=== PATIENT | female | born 1955 | race Two or more races ===

== ENCOUNTER 2020-01-02 19:08 | Inpatient (IN) | payer MEDICAID ==
[~2020-01-02] VITALS: Ht 160 cm; Wt 63.0 kg
--- NOTE | 2020-01-02 19:10 | NUR ---
ED Nurse Note: Patient brought into ED from home by ambulance RA [id number] due to dizziness, headache, nausea and vomiting 30 mintues prior to arrival to ED. BS on the scene was 137. patient is alert awake x4 ambulatory breathing unlabored and even, speaking in full sentences. patient placed on a hospital gown, on a equipment monitor phototypesetting.
--- NOTE | 2020-01-02 19:17 | Emergency Room Report ---
History of Present Illness General Chief Complaint: Dizziness Source: Patient, EMS Present Illness HPI Patient is a 64-year-old female who presents after increased dizziness and headache. Prior history of hypertension and previous similar symptoms several years ago. Onset of symptoms approximately 3 hours prior to arrival. She took Benadryl without any improvement. Takes medication for hypertension. Reports having increased spinning sensation. Denies any vomiting or diarrhea. Allergies: Coded Allergies: MORPHINE (Verified Allergy, Unknown, 01/02/20) COVID-19 Screening Contact w/high risk pt: No Recent Travel to affected area: No Experienced COVID-19 symptoms?: No COVID-19 Testing performed SOLE ROUNDER: No Patient History Past Medical History: see triage record Reviewed Nursing Documentation: PMH: Agreed; PSxH: Agreed Nursing Documentation-PMH Hx Hypertension: Yes - high cholesterol Hx Diabetes: Yes Review of Systems All Other Systems: negative except mentioned in HPI Physical Exam Vital Signs Date Time Temp Pulse Resp B/P (MAP) Pulse Ox O2 Delivery O2 Flow Rate FiO2 01/02/20 19:04 97.3 67 17 163/80 (107) 97 Room Air Sp02 EP Interpretation: reviewed, normal General Appearance: normal inspection, well appearing, no apparent distress, alert, GCS 15, non-toxic Head: atraumatic ENT: normal ENT inspection, hearing grossly normal, normal voice Neck: normal inspection, full range of motion, supple, no bony tend Respiratory: normal inspection, lungs clear, normal breath sounds, no respiratory distress, no retraction, no wheezing Cardiovascular #1: regular rate, rhythm, no edema Gastrointestinal: normal inspection, normal bowel sounds, non tender, soft, no guarding, no hernia Genitourinary: no CVA tenderness Musculoskeletal: normal inspection, back normal, normal range of motion Neurologic: alert, motor strength/tone normal, reading recovery teacher III-XII nml as tested, oriented x3, responsive, speech normal, normal inspection Psychiatric: normal inspection, judgement/insight normal, mood/affect normal Medical Decision Making Diagnostic Impression: Primary Impression: Headache Additional Impressions: Dehydration Abnormal EKG ER Course Patient presented for dizziness. Differential diagnosis include was not limited to benign positional vertigo, CVA, labyrinth-itis among others. Because of complexity of patient's case imaging studies were ordered.CT imaging showed no evidence of acute intracranial pathology. Laboratory testing showed no evidence of anemia. Patient was given aspirin as well as IV fluids and meclizine. EKG did show some evidence of ST depression diffusely. patient was discussed with Dr. Yarelis Cantu for [facility] and patient was admitted for further evaluation and treatment. Labs Test 01/02/20 19:05 White Blood Count 6.8 K/UL (4.8-10.8) Red Blood Count 4.79 M/UL (4.20-5.40) Hemoglobin 14.0 G/DL (12.0-16.0) Hematocrit 41.8 % (37.0-47.0) Mean Corpuscular Volume 87 FL (80-99) Mean Corpuscular Hemoglobin 29.2 PG (27.0-31.0) Mean Corpuscular Hemoglobin Concent 33.5 G/DL (32.0-36.0) Red Cell Distribution Width 11.9 % (11.6-14.8) Platelet Count 224 K/UL (150-450) Mean Platelet Volume 7.6 FL (6.5-10.1) Neutrophils (%) (Auto) 66.4 % (45.0-75.0) Lymphocytes (%) (Auto) 25.4 % (20.0-45.0) Monocytes (%) (Auto) 5.3 % (1.0-10.0) Eosinophils (%) (Auto) 1.7 % (0.0-3.0) Basophils (%) (Auto) 1.3 % (0.0-2.0) Prothrombin Time 10.3 SEC (9.30-11.50) Prothromb Time International Ratio 0.9 (0.9-1.1) Activated Partial Thromboplast Time 23 SEC (23-33) D-Dimer 0.20 mg/L FEU (0.00-0.49) Sodium Level 140 MMOL/L (136-145) Potassium Level 3.5 MMOL/L (3.5-5.1) Chloride Level 101 MMOL/L (98-107) Carbon Dioxide Level 27 MMOL/L (21-32) Anion Gap 12 mmol/L (5-15) Blood Urea Nitrogen 19 mg/dL (7-18) Creatinine 0.8 MG/DL (0.55-1.30) Estimat Glomerular Filtration Rate > 60 mL/min (>60) Glucose Level 145 MG/DL (74-106) Calcium Level 8.5 MG/DL (8.5-10.1) Total Bilirubin 0.3 MG/DL (0.2-1.0) Aspartate Amino Transf (AST/SGOT) 16 U/L (15-37) Alanine Aminotransferase (ALT/SGPT) 24 U/L (12-78) Alkaline Phosphatase 92 U/L (46-116) Troponin I 0.000 ng/mL (0.000-0.056) Total Protein 7.6 G/DL (6.4-8.2) Albumin 4.1 G/DL (3.4-5.0) Globulin 3.5 g/dL Albumin/Globulin Ratio 1.2 (1.0-2.7) EKG Diagnostic Results Rate: normal Rhythm: NSR ST Segments: other - Diffuse ST depression Last Vital Signs Date Time Temp Pulse Resp B/P (MAP) Pulse Ox O2 Delivery O2 Flow Rate FiO2 01/02/20 19:04 97.3 67 17 163/80 (107) 97 Room Air Status: unchanged Disposition: ADMITTED INPATIENT Condition: Stable Hermes Barnard MD Jan 02, 2020 19:17
[2020-01-02 19:28] VITALS: BP 162/75
[2020-01-02] MEDS ORDERED: Meclizine 25mg tab ORAL ONE (19:45)
--- NOTE | 2020-01-02 19:56 | NUR ---
ED Nurse Note: patient taken to CT scan.
[2020-01-02 20:04] LABS: INR 0.9 (0.9-1.1)
[2020-01-02 20:06] LABS: BASOPHILS % (AUTO) 1.3 % (0.0-2.0); EOSINOPHILS % (AUTO) 1.7 % (0.0-3.0); HEMATOCRIT 41.8 % (37.0-47.0); LYMPHOCYTES % (AUTO) 25.4 % (20.0-45.0); MEAN CORPUSCULAR VOLUME 87 FL (80-99); MONOCYTES % (AUTO) 5.3 % (1.0-10.0); NEUTROPHILS % (AUTO) 66.4 % (45.0-75.0); PLATELET COUNT 224 K/UL (150-450); RED BLOOD COUNT 4.79 M/UL (4.20-5.40); RED CELL DISTRIBUTION WIDTH 11.9 % (11.6-14.8); WHITE BLOOD COUNT 6.8 K/UL (4.8-10.8)
[2020-01-02 20:23] LABS: ANION GAP 12 mmol/L (5-15); BLOOD UREA NITROGEN 19 mg/dL (7-18); CALCIUM 8.5 MG/DL (8.5-10.1); CARBON DIOXIDE 27 MMOL/L (21-32); CHLORIDE 101 MMOL/L (98-107); CREATININE 0.8 MG/DL (0.55-1.30); POTASSIUM 3.5 MMOL/L (3.5-5.1); SODIUM 140 MMOL/L (136-145)
[2020-01-02 20:28] LABS: ALANINE AMINOTRANSFERASE 24 U/L (12-78); ALBUMIN 4.1 G/DL (3.4-5.0); ALBUMIN/GLOBULIN RATIO 1.2 (1.0-2.7); ALKALINE PHOSPHATASE 92 U/L (46-116); ASPARTATE AMINO TRANSFERASE 16 U/L (15-37); BILIRUBIN,TOTAL 0.3 MG/DL (0.2-1.0)
[2020-01-02] MEDS ORDERED: Aspirin Baby 81mg ORAL ONE (20:45)
--- NOTE | 2020-01-02 20:54 | Diagnostic Imaging Report ---
EXAM: CT Head Without Intravenous Contrast CLINICAL HISTORY: DIZZY TECHNIQUE: Axial computed tomography images of the head/brain without intravenous contrast. CTDI is 53.4 mGy and DLP is 992.1 mGy-cm. One or more of the following dose reduction techniques were used: automated exposure control, adjustment of the mA and/or kV according to patient size, use of iterative reconstruction technique. COMPARISON: None FINDINGS: Brain: Unremarkable. No hemorrhage. No significant white matter disease. No edema. Ventricles: Unremarkable. No ventriculomegaly. Bones/joints: Unremarkable. No acute fracture. Soft tissues: Unremarkable. Sinuses: Unremarkable as visualized. No acute sinusitis. Mastoid air cells: Unremarkable as visualized. No mastoid effusion. IMPRESSION: No acute intracranial abnormality.
[2020-01-02] MEDS ORDERED: ASPIR 8181 MG ORAL (22:06)
[2020-01-02] MEDS ORDERED: BENAZEPRIL HCL10 MG ORAL (22:06)
[2020-01-02] MEDS ORDERED: ATORVASTATIN CA20 MG ORAL (22:06)
--- NOTE | 2020-01-02 22:34 | NUR ---
ED Nurse Note: UA SENT TO LAB
[2020-01-02] MEDS ORDERED: DiphenhydrAMINE 50mg/ml Inj IVP ONE (22:45)
[2020-01-02 22:59] VITALS: BP 143/72
[2020-01-02 23:07] LABS: APPEARANCE,URINE SLIGHTLY CLOUDY; BILIRUBIN, URINE NEGATIVE (NEGATIVE); COLOR,URINE PALE YELLOW; GLUCOSE, URINE (UA) NEGATIVE (NEGATIVE); KETONES,URINE NEGATIVE (NEGATIVE); LEUKOCYTE ESTERASE ,URINE NEGATIVE (NEGATIVE); NITRITE,URINE NEGATIVE (NEGATIVE); PH,URINE 8 (4.5-8.0); PROTEIN,URINE NEGATIVE (NEGATIVE); UROBILINOGEN,URINE NORMAL MG/DL (0.0-1.0)
[2020-01-02] MEDS ORDERED: Miralax 17gm pkt ORAL PRN (23:15)
[2020-01-02] MEDS ORDERED: Mylanta II UD 30ml ORAL PRN (23:15)
[2020-01-02] MEDS ORDERED: Milk of Magnesia 30ml Ud ORAL PRN (23:15)
--- NOTE | 2020-01-02 23:32 | NUR ---
HAND-OFF: Report given to Jany HALE, endorsed all plan of care using SBAR .
--- NOTE | 2020-01-02 23:35 | NUR ---
ED Nurse Note: Received report from ALEXIA Song. Patient brought into ED from home by ambulance RA 894 2/ dizziness, headache, N/V for 30 min prior to arrival to ED. Patient is AO x4 and resting on the bed. Afebrile and Jordon on the room service runner. Denies CP and SOB. No acute distress noted.
--- NOTE | 2020-01-03 00:46 | NUR ---
ED Nurse Note: 2nd troponin was drawn and sent to the lab.
--- NOTE | 2020-01-03 02:00 | NUR ---
ED Nurse Note: Pt asleep comfortably Jordon on a monitor. Notified to patient care secretary. MD changed parameter on aircraft structural design engineer. Afebrile Will continue to monitor.
[2020-01-03 03:30] VITALS: BP 125/60
--- NOTE | 2020-01-03 04:19 | NUR ---
ED Nurse Note: AMLAB drawn and sent to the lab
[2020-01-03 05:04] LABS: BASOPHILS % (AUTO) 0.8 % (0.0-2.0); EOSINOPHILS % (AUTO) 0.6 % (0.0-3.0); HEMATOCRIT 38.4 % (37.0-47.0); HEMOGLOBIN 12.6 G/DL (12.0-16.0); LYMPHOCYTES % (AUTO) 25.8 % (20.0-45.0); MEAN CORPUSCULAR VOLUME 90 FL (80-99); NEUTROPHILS % (AUTO) 66.9 % (45.0-75.0); PLATELET COUNT 202 K/UL (150-450); RED BLOOD COUNT 4.29 M/UL (4.20-5.40); RED CELL DISTRIBUTION WIDTH 11.3 % (11.6-14.8); WHITE BLOOD COUNT 7.7 K/UL (4.8-10.8)
[2020-01-03 05:12] LABS: ANION GAP 10 mmol/L (5-15); BLOOD UREA NITROGEN 13 mg/dL (7-18); CALCIUM 6.4 MG/DL (8.5-10.1); CARBON DIOXIDE 24 MMOL/L (21-32); CHLORIDE 113 MMOL/L (98-107); CREATININE 0.5 MG/DL (0.55-1.30); POTASSIUM 2.9 MMOL/L (3.5-5.1); SODIUM 147 MMOL/L (136-145)
--- NOTE | 2020-01-03 06:40 | NUR ---
ED Nurse Note: Pt ambulated to bathroom with steady gait.
--- NOTE | 2020-01-03 07:08 | NUR ---
HAND-OFF: Report given to ALEXIA Hood. Endorsed POC.
[2020-01-03 07:12] VITALS: BP 109/65
--- NOTE | 2020-01-03 07:46 | NUR ---
ED Nurse Note:pt. is awake no signs of distress noted, breakfast provided seen by PMD
--- NOTE | 2020-01-03 08:35 | NUR ---
ED Nurse Note:called report to tele,given to Carine RN, pt. is taken up stairs
[2020-01-03] MEDS ORDERED: Aspirin Baby 81mg ORAL SCH (09:00)
--- NOTE | 2020-01-03 09:00 | NUR ---
NURSE NOTES: Nurse report given by ALEXIA Hood. Patient's transferred from ER to by darlyn, with assist of ER nurse. Patient's in stable condition, AO x 4, lung sounds clear, regular, no s/s of distress or SOB, denies chest pain. IV is saline locked, flushed, patent and asymptomatic. Patient's belonging list went over with patient and two nurses at bedside. Bed low and locked, call light within reach, side rails x 2, patient fall teaching given. Admission orders given by Dr. Cantu. Vital signs: BP 127/79, LA 57, Temp 97.9, RR 17, O2 98%. Notified Dr. Roe's office that patient arrived on the floor at 0900.
[2020-01-03] MEDS: Docusate 100mg cap ORAL SCH ×2 (09:43→22:01)
[2020-01-03] MEDS: Heparin 5000 units/ml inj SUBQ SCH ×2 (09:43→22:08)
--- NOTE | 2020-01-03 10:06 | NUR ---
CASE MANAGEMENT: INITIAL REVIEW 64YR OLD FEMALE BIBA FROM HOME CC: DIZZINESS SI:HEADACHE . ABNORMAL ECG . DEHYDRATION 97.4 67 17 163/80 97% ON RA BUN 19 BG 145 IS: IVF NS BOLUS X1 IV BENADRYL X1 ANTIVERT PO X1 ASA PO X1 CT HEAD -No acute intracranial abnormality. \: 2E TELE UNIT DCP: HOME WHEN STABLE PLAN: CONT TO HYDRATE PT EVAL AND TREAT RECOMMENDATION CARDIO MONITOR AM LABS CASE MANAGEMENT: REVIEW SI:HYPOKALEMIA. HYPOCALCEMIA . HEADACHE . ABNORMAL ECG . DEHYDRATION 97.0 49 14 125/60 96% ON RA NA+ 147 K+2.9 CL-113 CREAT 0.5 CA+ 6.4 IS: HEPARIN SQ BID ASA PO QD COLACE PO BID PROTONIX PO QD \: 2E TELE UNIT DCP: HOME WHEN STABLE PLAN: MRI BRAIN VENOUS DUPLEX
--- NOTE | 2020-01-03 11:43 | History and Physical ---
History of Present Illness General Date patient seen: Jan 03, 2020 Time patient seen: 07:25 Reason for Hospitalization: Dizziness Present Illness HPI 64-year-old female with HTN and dyslipidemia who presented to ED after increased dizziness and headache last night. Onset of symptoms approximately 3 hours prior to arrival. She took Benadryl without any improvement. Reports having increased spinning sensation. No other focal neurological symptoms, no visual disturbance, speech difficulty, no extremity weakness, no chest pain palpitations or dyspnea. In ED she had a negative head CT, referred for admission for further evaluation. Allergies: Coded Allergies: MORPHINE (Verified Allergy, Unknown, 01/02/20) COVID-19 Screening Contact w/high risk pt: No Recent Travel to affected area: No Experienced COVID-19 symptoms?: No Medication History Scheduled Aspirin* (Aspir 81*), 81 MG ORAL DAILY, (Reported) Atorvastatin Calcium* (Atorvastatin Calcium*), Unknown Dose ORAL BEDTIME, ( Reported) Benazepril Hcl* (Benazepril Hcl*), 10 MG ORAL DAILY, (Reported) Patient History Limited by: language barrier Healthcare decision maker Resuscitation status Advanced Directive on File Review of Systems Constitutional: Denies: chills, sweats, fever Respiratory: Denies: cough, shortness of breath Cardiovascular: Denies: chest pain, edema, palpitations Gastrointestinal: Denies: abdominal pain, constipation Genitourinary: Denies: dysuria Musculoskeletal: Denies: back pain Neurological: Reports: headache, dizziness Physical Exam General Appearance: alert HEENT: atraumatic, anicteric, PERRL, EOMI, pharynx normal Neck: normal alignment, supple Respiratory/Chest: lungs clear, normal breath sounds Cardiovascular/Chest: normal rate, regular rhythm Abdomen: non tender, no organomegaly Extremities: non-tender, normal inspection, no calf tenderness Last 24 Hour Vital Signs Date Time Temp Pulse Resp B/P (MAP) Pulse Ox O2 Delivery O2 Flow Rate FiO2 01/03/20 10:12 Room Air 01/03/20 10:12 68 01/03/20 08:34 97.0 87 22 109/65 97 Room Air 01/03/20 07:12 97.0 87 22 109/65 97 Room Air 01/03/20 03:30 97.0 49 14 125/60 96 Room Air 01/02/20 22:59 97.5 58 15 143/72 96 Room Air 01/02/20 19:28 97.3 64 15 162/75 96 Room Air 01/02/20 19:26 67 17 Room Air 01/02/20 19:04 97.3 67 17 163/80 (107) 97 Room Air Laboratory Tests Test 01/02/20 19:05 01/03/20 00:46 01/03/20 04:19 White Blood Count 6.8 K/UL (4.8-10.8) 7.7 K/UL (4.8-10.8) Red Blood Count 4.79 M/UL (4.20-5.40) 4.29 M/UL (4.20-5.40) Hemoglobin 14.0 G/DL (12.0-16.0) 12.6 G/DL (12.0-16.0) Hematocrit 41.8 % (37.0-47.0) 38.4 % (37.0-47.0) Mean Corpuscular Volume 87 FL (80-99) 90 FL (80-99) Mean Corpuscular Hemoglobin 29.2 PG (27.0-31.0) 29.4 PG (27.0-31.0) Mean Corpuscular Hemoglobin Concent 33.5 G/DL (32.0-36.0) 32.8 G/DL (32.0-36.0) Red Cell Distribution Width 11.9 % (11.6-14.8) 11.3 % (11.6-14.8) L Platelet Count 224 K/UL (150-450) 202 K/UL (150-450) Mean Platelet Volume 7.6 FL (6.5-10.1) 7.5 FL (6.5-10.1) Neutrophils (%) (Auto) 66.4 % (45.0-75.0) 66.9 % (45.0-75.0) Lymphocytes (%) (Auto) 25.4 % (20.0-45.0) 25.8 % (20.0-45.0) Monocytes (%) (Auto) 5.3 % (1.0-10.0) 6.0 % (1.0-10.0) Eosinophils (%) (Auto) 1.7 % (0.0-3.0) 0.6 % (0.0-3.0) Basophils (%) (Auto) 1.3 % (0.0-2.0) 0.8 % (0.0-2.0) Prothrombin Time 10.3 SEC (9.30-11.50) Prothromb Time International Ratio 0.9 (0.9-1.1) Activated Partial Thromboplast Time 23 SEC (23-33) D-Dimer 0.20 mg/L FEU (0.00-0.49) Sodium Level 140 MMOL/L (136-145) 147 MMOL/L (136-145) H Potassium Level 3.5 MMOL/L (3.5-5.1) 2.9 MMOL/L (3.5-5.1) L Chloride Level 101 MMOL/L (98-107) 113 MMOL/L (98-107) H Carbon Dioxide Level 27 MMOL/L (21-32) 24 MMOL/L (21-32) Anion Gap 12 mmol/L (5-15) 10 mmol/L (5-15) Blood Urea Nitrogen 19 mg/dL (7-18) H 13 mg/dL (7-18) Creatinine 0.8 MG/DL (0.55-1.30) 0.5 MG/DL (0.55-1.30) L Estimat Glomerular Filtration Rate > 60 mL/min (>60) > 60 mL/min (>60) Glucose Level 145 MG/DL (74-106) H 92 MG/DL (74-106) Calcium Level 8.5 MG/DL (8.5-10.1) 6.4 MG/DL (8.5-10.1) #L Total Bilirubin 0.3 MG/DL (0.2-1.0) Aspartate Amino Transf (AST/SGOT) 16 U/L (15-37) Alanine Aminotransferase (ALT/SGPT) 24 U/L (12-78) Alkaline Phosphatase 92 U/L (46-116) Troponin I 0.000 ng/mL (0.000-0.056) 0.000 ng/mL (0.000-0.056) 0.000 ng/mL (0.000-0.056) Total Protein 7.6 G/DL (6.4-8.2) Albumin 4.1 G/DL (3.4-5.0) Globulin 3.5 g/dL Albumin/Globulin Ratio 1.2 (1.0-2.7) Height (Feet): 5 Height (Inches): 3.00 Weight (Pounds): 139 Medications Current Medications Medications (Trade) Dose Ordered Sig/Ulises Route PRN Reason Start Time Stop Time Status Last Admin Dose Admin Acetaminophen (Tylenol) 650 mg Q4H PRN ORAL Mild Pain (Pain Scale 1-3) 01/02/20 23:15 02/01/20 23:14 Acetaminophen (Tylenol) 650 mg Q4H PRN ORAL Temp >100.5 01/02/20 23:15 02/01/20 23:14 Al Hydroxide/Mg Hydroxide (Mylanta II) 30 ml Q6H PRN ORAL dyspepsia 01/02/20 23:15 02/01/20 23:14 Aspirin (ASA) 81 mg DAILY ORAL 01/03/20 09:00 02/17/20 08:59 01/03/20 09:43 Bisacodyl (Dulcolax) 10 mg DAILYPRN PRN RECTAL Constipation 01/02/20 23:15 04/01/20 23:14 Dextrose (Dextrose 50%) 25 ml Q30M PRN IV Hypoglycemia 01/02/20 23:15 04/01/20 23:14 Dextrose (Dextrose 50%) 50 ml Q30M PRN IV Hypoglycemia 01/02/20 23:15 04/01/20 23:14 Diphenhydramine HCl (Benadryl) 25 mg Q6H PRN ORAL Itching/Pruritis 01/02/20 23:15 02/01/20 23:14 Docusate Sodium (Colace) 100 mg EVERY 12 HOURS ORAL 01/03/20 09:00 02/02/20 08:59 01/03/20 09:43 Heparin Sodium (Porcine) (Heparin 5000 units/ml) 5,000 units EVERY 12 HOURS SUBQ 01/03/20 09:00 02/17/20 08:59 01/03/20 09:43 Hydralazine HCl (Apresoline) 10 mg Q4H PRN IV For High Blood Pressure 01/02/20 23:15 04/01/20 23:14 Magnesium Hydroxide (Mom) 30 ml HSPRN PRN ORAL Constipation 01/02/20 23:15 02/01/20 23:14 Ondansetron HCl (Zofran) 4 mg Q6H PRN IVP Nausea & Vomiting 01/02/20 23:15 02/01/20 23:14 Pantoprazole (Protonix) 40 mg DAILY ORAL 01/03/20 09:00 02/02/20 08:59 01/03/20 09:42 Polyethylene Glycol (Miralax) 17 gm DAILYPRN PRN ORAL Constipation 01/02/20 23:15 02/01/20 23:14 Assessment/Plan Assessment/Plan: 64 year old woman with HTN, dyslipidemia who presented to the ED with headache and dizziness, blood pressure noted to be elevated upon presentation. #Headache and dizziness #Rule out CVA #Uncontrolled HTN, improved -place patient in observation, telemetry unit -Serial trops negative -Check MRI brain and carotid duplex -Check TTE -continue home statin and ACEI -PT/OT eval #Hypokalemia and hyponatremia -replace with oral KCl -check BMP in AM VTE PPx HSQ Full Code I spent 72 minutes on this patient's case, and 37 minutes was dedicated to counseling and/or care coordination with RN, ED team, consulting Sumeet Latham MD Jan 03, 2020 11:43
[2020-01-03 12:00] VITALS: BP 155/73
--- NOTE | 2020-01-03 15:47 | NUR ---
*-* INSURANCE *-* UPDATED CLINICALS AND REVIEWS HAVE BEEN FAXED TO: FAX:[phone]
[2020-01-03 15:55] VITALS: BP 134/68
--- NOTE | 2020-01-03 19:19 | NUR ---
HAND-OFF: Report given to Fede Loo. Patient's stable, plan of care endorsed.
--- NOTE | 2020-01-03 19:28 | NUR ---
NURSE NOTES: Received report from ALEXIA Hawk. Patient is awake, alert and oriented x 4, Romanian speaking. On cardiac diet, instructed and amenable. On room air with no shortness of breath reported, saturating 95%. test operator is in placed, shows sinus rhythm with no chest pain at this time. IV site is on right AC G-20 saline lock that is patent and intact. Patient is ambulatory with steady gait. Safety measures are in placed, bed in lowest and locked position, side rails up x 2. Call light button and bedside table within reach, advised to call for any assistance needed, will continue plan of care.
[2020-01-03 20:00] VITALS: BP 129/65
[2020-01-04] VITALS (7 sets, daily range): BP systolic 110–166; BP diastolic 52–65
[2020-01-04 06:58] LABS: BASOPHILS % (AUTO) 1.4 % (0.0-2.0); EOSINOPHILS % (AUTO) 2.5 % (0.0-3.0); HEMATOCRIT 41.7 % (37.0-47.0); HEMOGLOBIN 13.6 G/DL (12.0-16.0); LYMPHOCYTES % (AUTO) 43.8 % (20.0-45.0); MEAN CORPUSCULAR VOLUME 89 FL (80-99); MONOCYTES % (AUTO) 6.1 % (1.0-10.0); NEUTROPHILS % (AUTO) 46.2 % (45.0-75.0); PLATELET COUNT 218 K/UL (150-450); RED BLOOD COUNT 4.67 M/UL (4.20-5.40); RED CELL DISTRIBUTION WIDTH 11.6 % (11.6-14.8); WHITE BLOOD COUNT 5.6 K/UL (4.8-10.8)
[2020-01-04 07:18] LABS: ANION GAP 8 mmol/L (5-15); BLOOD UREA NITROGEN 21 mg/dL (7-18); CARBON DIOXIDE 27 MMOL/L (21-32); CHLORIDE 107 MMOL/L (98-107); CHOLESTEROL 228 MG/DL (< 200); CREATININE 0.8 MG/DL (0.55-1.30); HDL CHOLESTEROL 49 MG/DL (40-60); POTASSIUM 3.8 MMOL/L (3.5-5.1); SODIUM 142 MMOL/L (136-145); TRIGLYCERIDES 164 MG/DL (30-150)
--- NOTE | 2020-01-04 07:18 | NUR ---
HAND-OFF: Report given to ALEXIA Crystal. Patient is on bed, on stable condition, plan of care endorsed.
--- NOTE | 2020-01-04 07:55 | NUR ---
NURSE NOTES: Received report from ALEXIA Badillo. Pt A/O x4, Hungarian speaking, able to make needs known. No s/sx of acute distress, denies any pain, breathing even and unlabored in RA. IV site patent and asymptomatic. Bed on lowest position, call light within reach. Will continue plan of care.
[2020-01-04] MEDS: Docusate 100mg cap ORAL SCH ×2 (08:37→20:53)
[2020-01-04] MEDS: Aspirin Baby 81mg ORAL SCH (08:37)
[2020-01-04] MEDS: Heparin 5000 units/ml inj SUBQ SCH ×2 (08:43→20:54)
--- NOTE | 2020-01-04 10:04 | NUR ---
*-* INSURANCE *-* UPDATED CLINICALS AND REVIEWS HAVE BEEN FAXED TO: [facility] FAX:[phone] Addendum: 01/05/20 at 1055 by NESS MILLS CM [facility]/JAROD AUTH#[id number] FAX CLINICALS TO [facility] P:[phone] F: [phone]
--- NOTE | 2020-01-04 12:48 | General Progress Note ---
Assessment/Plan Problem List: (1) Hypokalemia ICD Codes: E87.6 - Hypokalemia SNOMED: 74072157 (2) Headache ICD Codes: R51 - Headache SNOMED: 35385040 (3) Dehydration ICD Codes: E86.0 - Dehydration SNOMED: 01229042 (4) Abnormal EKG ICD Codes: R94.31 - Abnormal electrocardiogram [ECG] [EKG] SNOMED: 517610866 Status: doing well Assessment/Plan: 64 year old woman with HTN, dyslipidemia who presented to the ED with headache and dizziness, blood pressure noted to be elevated upon presentation. #Headache and dizziness #Rule out CVA #Uncontrolled HTN, improved -Check MRI brain and carotid duplex pending -TTE grossly normal -continue home statin and ACEI -PT/OT eval #Hypokalemia and hyponatremia -resolved -replaced with oral KCl -check BMP in AM VTE PPx HSQ Full Code I spent 36 minutes on this patient's case, and 20 minutes was dedicated to counseling and/or care coordination with RN, ED team, consulting MDs Subjective Date patient seen: Jan 04, 2020 Time patient seen: 09:00 ROS Limited/Unobtainable: No Constitutional: Reports: no symptoms HEENT: Reports: no symptoms; Denies: blurred vision, double vision Cardiovascular: Reports: no symptoms; Denies: chest pain Respiratory: Reports: no symptoms Gastrointestinal/Abdominal: Reports: no symptoms Genitourinary: Reports: no symptoms Neurologic/Psychiatric: Reports: headache Endocrine: Reports: no symptoms Hematologic/Lymphatic: Reports: no symptoms Allergies: Coded Allergies: MORPHINE (Verified Allergy, Unknown, 01/02/20) All Systems: reviewed and negative except above Subjective Patient improving. Had headache in the a.m. which resolved. Pleated MRI and awaiting results. She thinks may be associated with her hypertension. Objective Last 24 Hour Vital Signs Date Time Temp Pulse Resp B/P (MAP) Pulse Ox O2 Delivery O2 Flow Rate FiO2 01/04/20 11:47 161/65 01/04/20 09:00 Room Air 01/04/20 08:00 97.9 60 20 166/65 (98) 97 01/04/20 07:42 59 01/04/20 04:00 98.8 57 19 127/61 (83) 97 01/04/20 04:00 57 01/04/20 00:00 99.0 60 20 126/54 (78) 99 01/04/20 00:00 55 01/03/20 21:00 Room Air 01/03/20 20:00 97.9 64 19 129/65 (86) 97 01/03/20 20:00 60 01/03/20 16:23 98.1 01/03/20 16:00 57 01/03/20 15:55 98.1 90 18 134/68 (90) 98 Intake and Output 01/03/20 01/04/20 19:00 07:00 Intake Total 590 ml Balance 590 ml Intake Oral 590 ml # Voids 3 Laboratory Tests 01/04/20 05:55: White Blood Count 5.6, Red Blood Count 4.67, Hemoglobin 13.6, Hematocrit 41.7, Mean Corpuscular Volume 89, Mean Corpuscular Hemoglobin 29.2, Mean Corpuscular Hemoglobin Concent 32.7, Red Cell Distribution Width 11.6, Platelet Count 218, Mean Platelet Volume 7.0, Neutrophils (%) (Auto) 46.2, Lymphocytes (%) (Auto) 43.8, Monocytes (%) (Auto) 6.1, Eosinophils (%) (Auto) 2.5, Basophils (%) (Auto ) 1.4, Sodium Level 142, Potassium Level 3.8, Chloride Level 107, Carbon Dioxide Level 27, Anion Gap 8, Blood Urea Nitrogen 21H, Creatinine 0.8#, Estimat Glomerular Filtration Rate > 60, Glucose Level 126H, Hemoglobin A1c 6.6H , Calcium Level 8.0#L, Triglycerides Level 164H, Cholesterol Level 228H, LDL Cholesterol 149H, HDL Cholesterol 49, Cholesterol/HDL Ratio 4.7H Height (Feet): 5 Height (Inches): 3.00 Weight (Pounds): 139 General Appearance: WD/WN, no apparent distress, alert, alert oriented x3 EENT: PERRL/EOMI, normal ENT inspection Neck: non-tender, normal alignment, supple Cardiovascular: normal peripheral pulses, normal rate, regular rhythm, no JVD Respiratory/Chest: lungs clear, normal breath sounds, no respiratory distress, no accessory muscle use Abdomen: normal bowel sounds, non tender, soft Extremities: normal range of motion, non-tender, normal inspection Neurologic: ceramic plater II-XII grossly normal, no motor/sensory deficits, alert, oriented x 3, responsive, normal mood/affect Stephan Mccarty M.D. Jan 04, 2020 12:48
--- NOTE | 2020-01-04 13:57 | NUR ---
P.T Note: P.T evaluation completed. Based P.T evaluation, pt is independent in all aspects of ADL/functional mobility and gait/ambulation. Pt's functional status does not warrant skilled P.T service at this time as patient current baseline function. Encouraged pt OOB activities i.e ambulation and up in chair VS bedrest unless otherwise ordered. D/C P.T service. Thank you for this referral.
--- NOTE | 2020-01-04 14:50 | NUR ---
CASE MANAGEMENT:REVIEW 01/04/20 SI: HYPOKALEMIA. DEHYDRATION. HEADACHE 98.7 58 20 161/65 98% ON RA BUN+21 GLUCOSE+126 IS: ASA PO QD HEPARIN SQ Q12 PROTONIX PO QD : TELEMETRY STATUS DCP: FROM HOME PLAN: MRI BRAIN CAROTID DUPLEX PT EVAL HOPE TO DISCHARGE IN AM
--- NOTE | 2020-01-04 16:03 | Diagnostic Imaging Report ---
Indication: Reason For Exam: DIZZY Technique: sagittal T1 fast spin echo, axial T1 FLAIR, axial T2 FLAIR, axial T2 FS PROPELLER, axial T2* GRE, axial diffusion weighted images. ADC and exponential ADC maps generated Comparison: Findings: No abnormal areas of parenchymal restricted diffusion to suggest acute infarction. There is a tiny focus of increased diffusion signal in the left choroid plexus. No associated T2 signal abnormality. No acute hemorrhage or edema. No mass effect nor midline shift. Normal size ventricles and extra axial CSF spaces. Visualized orbits are unremarkable. Empty sella incidentally noted. There is left maxillary sinus polyp versus mucous retention cyst. The vascular flow voids are preserved. Sinus disease, empty sella incidentally noted Impression: Negative for acute intracranial bleed, mass effect, or parenchymal infarct Tiny focus of diffusion restriction within the left choroid plexus, could represent a tiny choroid plexus infarct.
--- NOTE | 2020-01-04 19:27 | NUR ---
HAND-OFF: Report given to ALEXIA Medel. Pt in stable condition, endorsed plan of care.
--- NOTE | 2020-01-04 19:30 | NUR ---
NURSE NOTES: Received report from Marah Rose RN. Pt in stable condition, denies pain. Will continue plan of care and close monitoring.
[2020-01-05] VITALS: BP 125/62
[2020-01-05 04:30] VITALS: BP 138/62
--- NOTE | 2020-01-05 07:12 | NUR ---
HAND-OFF: Report given to Marah Rose RN. Pt in stable condition. Plan of care endorsed.
--- NOTE | 2020-01-05 07:35 | NUR ---
NURSE NOTES: Received report from ALEXIA Medel. Pt awake, A/O x4, able to make needs known, denies any pain, breathing even and unlabored in RA. No s/sx of acute distress. Iv site patent and asymptomatic. Bed on lowest position, call light within reach. Will continue plan of care.
--- NOTE | 2020-01-05 07:46 | NUR ---
NURSE NOTES: Received report from ALEXIA Medel. Pt in bed resting, no signs of respiratory distress. Will continue plan of care. Addendum: 01/05/20 at 0749 by Meghan Miguel RN Note written under wrong patient
[2020-01-05 08:00] VITALS: BP 127/64
[2020-01-05] MEDS: Aspirin Baby 81mg ORAL SCH (08:57)
[2020-01-05] MEDS: Docusate 100mg cap ORAL SCH (08:58)
[2020-01-05] MEDS: Heparin 5000 units/ml inj SUBQ SCH (09:06)
[2020-01-05 09:07] LABS: BASOPHILS % (AUTO) 0.9 % (0.0-2.0); EOSINOPHILS % (AUTO) 1.8 % (0.0-3.0); HEMATOCRIT 41.4 % (37.0-47.0); HEMOGLOBIN 13.6 G/DL (12.0-16.0); LYMPHOCYTES % (AUTO) 27.6 % (20.0-45.0); MEAN CORPUSCULAR VOLUME 88 FL (80-99); MONOCYTES % (AUTO) 5.5 % (1.0-10.0); NEUTROPHILS % (AUTO) 64.3 % (45.0-75.0); PLATELET COUNT 219 K/UL (150-450); RED BLOOD COUNT 4.68 M/UL (4.20-5.40); RED CELL DISTRIBUTION WIDTH 11.3 % (11.6-14.8); WHITE BLOOD COUNT 6.4 K/UL (4.8-10.8)
[2020-01-05 09:20] LABS: ANION GAP 10 mmol/L (5-15); BLOOD UREA NITROGEN 23 mg/dL (7-18); CALCIUM 8.7 MG/DL (8.5-10.1); CARBON DIOXIDE 28 MMOL/L (21-32); CHLORIDE 104 MMOL/L (98-107); CREATININE 0.8 MG/DL (0.55-1.30); POTASSIUM 3.6 MMOL/L (3.5-5.1); SODIUM 141 MMOL/L (136-145)
[2020-01-05] MEDS ORDERED: BENAZEPRIL HCL10 MG ORAL (10:55)
--- NOTE | 2020-01-05 10:56 | Discharge Instructions ---
Discharge Instructions Discharge Instructions Call MD/Return to Hospital if: for headach or dizziness Diet: cardiac 2 GM Na, low fat Resume Normal Activity?: Yes Activity: light activity For Congestive Heart Failure Reminder Report to your physician any weight gain of 5 pounds or more in one week. Stephan Mccarty M.D. Jan 05, 2020 10:56
--- NOTE | 2020-01-05 12:08 | Discharge Summary ---
Discharge Summary Hospital Course Date of Admission Jan 02, 2020 at 21:30 Date of Discharge 01/05/2020 Admitting Diagnosis dizziness, abnormal ekg Reason for Hospitalization: Hyertensive urgency HPI 64-year-old female with HTN and dyslipidemia who presented to ED after increased dizziness and headache last night. Onset of symptoms approximately 3 hours prior to arrival. She took Benadryl without any improvement. Reports having increased spinning sensation. No other focal neurological symptoms, no visual disturbance, speech difficulty, no extremity weakness, no chest pain palpitations or dyspnea. In ED she had a negative head CT, referred for admission for further evaluation. Hospital Course 64 year old woman with HTN, dyslipidemia who presented to the ED with headache and dizziness, blood pressure noted to be elevated upon presentation. She was also hyponatremic and hypokalemic on admission. His electrolytes were replaced and normalized. Patient had a head CT which was unremarkable and later an MRI that showed a possible small infarct in her choroid plexus. Discussed the results with the patient and she understands the etiology. During her stay patient's blood pressure was elevated and that correlated with her symptoms of headache. Explained to her that her blood pressure needs to be better controlled so she does not have the symptoms. Patient had echocardiogram performed which was discussed with her. On day of discharge patient feeling completely fine and she ambulated around the unit and expressed that she would like to go home. She will follow-up with her PCP in 1 to 2 weeks. Discussed that we will be increasing her benazepril to better control her blood pressure. Discharge Condition Upon Discharge: stable Discharge Vital Signs Last Vital Signs Date Time Temp Pulse Resp B/P (MAP) Pulse Ox O2 Delivery O2 Flow Rate FiO2 01/05/20 09:44 62 01/05/20 09:00 Room Air 01/05/20 08:00 97.7 19 127/64 (85) 98 Discharge Disposition Patient was discharged to Discharge Diagnoses: (1) Hypertensive urgency Discharge Instructions Discharge Instructions Call MD/Return to Hospital if: for headach or dizziness Activity: light activity Stephan Mccarty M.D. Jan 05, 2020 12:08
--- NOTE | 2020-01-05 12:13 | NUR ---
NURSE NOTES: Pt left the unit in stable condition, picked up by daughter. Tele monitor, ID band and IV removed, no bleeding noted. Pt requested to keep the ID band with her. Belongings checked. DC instructions provided, pt verbalized understanding.
--- NOTE | 2020-01-05 14:08 | NUR ---
*-* INSURANCE *-* UPDATED CLINICALS AND REVIEWS HAVE BEEN FAXED TO: [facility] AUTH#[id number] FAX CLINICALS TO [facility] P:[phone] F: [phone]
--- NOTE | 2020-01-05 15:22 | Diagnostic Imaging Report ---
Indication: Reason For Exam: DIZZY Technique: Grayscale and duplex images of the bilateral extracranial carotid arteries Comparison: none Findings: Bilaterally, grayscale and duplex images demonstrate atherosclerotic plaquing resulting in less than 50% diameter stenosis. Doppler flow velocities and waveforms are within normal limits. Patent bilateral vertebral arteries, antegrade flow. Impression: Less than 50% diameter stenosis bilaterally All stenosis was measured based on the NASCET criteria. Velocity criteria are extrapolated from diameter data as defined by the Society of radiologists in ultrasound consensus conference. Radiology 2003:229; 340-346
== END 2020-01-05 12:15 | disposition home or self-care (01) | DRG 199 ==
LOC: EDBD 19:08 → EMR 19:50 → OBSVTOIN 21:30 → 2E 21:30 → EDBEDREQ 01-03 02:42
DX: I16.0 Hypertensive urgency (principal); E87.6 Hypokalemia; E86.0 Dehydration; E87.1 Hypo-osmolality and hyponatremia; E78.5 Hyperlipidemia, unspecified; Z88.6 Allergy status to analgesic agent; R94.31 Abnormal electrocardiogram [ECG] [EKG]
CPT/HCPCS: 36415; 70450; 70551; 80048; 80053; 80061; 81003; 82962; 83036; 84484; 85025; 85379; 85610; 85730; 86850; 86900; 86901; 93005; 93306; 93880; 96374; 99285; J8499